=== PATIENT | male | born 1955 | race Caucasian/White ===

== ENCOUNTER 2016-07-15 11:57 | Emergency (ER) | payer OTHER ==
[~2016-07-15] VITALS: Ht 180.3 cm; Wt 113.6 kg
[2016-07-15 12:00] VITALS: BP 147/70; PULSE 89; RESP 16; TEMP 98.8; O2SAT 99
--- NOTE | 2016-07-15 12:08 | PD ---
HPI Chief Complaint: Musculoskeletal Complaint Time Seen by Provider: 12:06 Travel History International Travel<30 days: No Contact w/Intl Traveler<30days: No Traveled to known affect area: No History of Present Illness HPI Patient is a 61-year-old male who presents emergency via EMS for evaluation of left leg pain and left forearm pain. Patient was at work when he slipped on oil , basically doing a split pulling his inner thigh, and forearm. She reports the pain is an 8 out of 10 and describes as cramping and sore. He denies any head injury, loss of consciousness, back pain, hip pain, abdominal pain, shortness of breath. Is a significant past medical history. [facility] Past Medical History Medical History: Denies Significant Hx Social History Alcohol Use: No Tobacco Use: No Substance Use: No Allergies-Medications (Allergen,Severity, Reaction): Coded Allergies: No Known Allergies (Unverified , 07/15/16) Reported Meds & Prescriptions Reported Meds & Active Scripts Active Flexeril (Cyclobenzaprine HCl) 10 Mg Tab 10 Mg PO TID PRN Prednisone 50 Mg Tab 50 Mg PO DAILY Ibuprofen 800 Mg Tab 800 Mg PO Q6HR PRN Review of Systems Except as stated in HPI: all other systems reviewed are Neg Musculoskeletal: Positive: Myalgias, Cramping, Pain Physical Exam Narrative GENERAL: Well-nourished, well-developed patient. SKIN: Warm and dry. HEAD: Normocephalic. EYES: No scleral icterus. No injection or drainage. NECK: Supple, trachea midline. No JVD or lymphadenopathy. CARDIOVASCULAR: Regular rate and rhythm without murmurs, gallops, or rubs. RESPIRATORY: Breath sounds equal bilaterally. No accessory muscle use. GASTROINTESTINAL: Abdomen soft, non-tender, nondistended. MUSCULOSKELETAL: No cyanosis, or edema. Moderately tender to palpation on left inner upper thigh, full range of motion in all 4 extremities. 5/5 muscle strength in all 4 extremities. Patient is neurovascularly intact. There is mild tenderness to palpation on the volar aspect of the left forearm. No erythema or edema noted. BACK: Nontender without obvious deformity. No CVA tenderness. Data Data Last Documented VS Vital Signs Date Time Temp Pulse Resp B/P Pulse Ox O2 Delivery O2 Flow Rate FiO2 07/15/16 12:00 98.8 89 16 147/70 99 Orders Ketorolac Inj (Toradol Inj) (07/15/16 12:15) Orphenadrine Inj (Norflex Inj) (07/15/16 12:15) Dexamethasone Inj (Decadron Inj) (07/15/16 12:15) [facility] Medical Decision Making Medical Screen Exam Complete: Yes Emergency Medical Condition: Yes Interpretation(s) Vital Signs Date Time Temp Pulse Resp B/P Pulse Ox O2 Delivery O2 Flow Rate FiO2 07/15/16 12:00 98.8 89 16 147/70 99 Differential Diagnosis Strain versus sprain versus spasm versus contusion versus fracture versus other Narrative Course Patient is a 61-year-old male who presented to emergency for evaluation of left groin/leg pain and left forearm pain after he sustained a fall at work today. Patient is neurologically intact, there was no head injury or loss of consciousness. Physical examination appears consistent with a muscle strain. Patient be given Norflex, Toradol, dexamethasone emergency department. Will reevaluate. Patient reports improvement in his pain after medication administration. He was encouraged to continue range of motion exercises, HEAT and ice to affected area, and avoid bed rest. He was encouraged to follow-up with his primary doctor. He was also encouraged return to emergency department for any new or worsening symptoms or concerning symptoms. Patient verbalized understanding of these instructions. Patient stable for discharge. Diagnosis Primary Impression: Strain of ligament or muscle Additional Impression: Fall Qualified Code: W19.XXXA - Fall, initial encounter Referrals: Primary Care Physician Patient Instructions: General Instructions, Muscle Spasm (ED), Muscle Strain ( ED) Departure Forms: Tests/Procedures, Work Release Enter return to work date: Jul 18, 2016 Additional Instructions: Follow-up with your primary doctor Take medications as directed Alternate heat and ice to affected area, continue range of motion exercises, avoid bed rest Return to emergency department for any new or worsening symptoms Med/Other Pt SpecificInfo: Prescription(s) given Scripts Cyclobenzaprine (Flexeril)10 Mg Tab10 Mg PO TID PRN (MUSCLE SPASM) #90 TAB Ref 0 Prov:Raine Philip 07/15/16 Prednisone 50 Mg Tab50 Mg PO DAILY #5 TAB Ref 0 Prov:Raine Philip 07/15/16 Ibuprofen 800 Mg [id number] Mg PO Q6HR PRN (PAIN) #40 TAB Ref 0 Prov:Raine Philip 07/15/16 Disposition: 01 DISCHARGE HOME Condition: Stable Raine Philip Jul 15, 2016 12:08
[2016-07-15] MEDS ORDERED: ORPHENADRINE INJ 60 MG/2 ML AMP IM ONE (12:15)
[2016-07-15] MEDS ORDERED: DEXAMETHASONE SOD PHOS 20 MG/5 ML VIAL IM ONE (12:15)
[2016-07-15] MEDS ORDERED: KETOROLAC TROMETHAMINE 60 MG/2 ML (IM) VIAL IM ONE (12:15)
[2016-07-15] MEDS ORDERED: CYCL1TAB29 PO (13:16)
[2016-07-15] MEDS ORDERED: PRED50 PO (13:16)
[2016-07-15] MEDS ORDERED: IBUP800T23 PO (13:16)
[2016-07-15 13:30] VITALS: RESP 16
[2016-07-15] MEDS ORDERED: PERC5TAB12 PO (13:51)
== END 2016-07-15 14:28 | disposition home or self-care (01) ==
LOC: PHEFT 11:57
DX: S76.912A Strain of unspecified muscles, fascia and tendons at thigh level, left thigh, initial encounter (principal); M79.632 Pain in left forearm; R25.2 Cramp and spasm; W01.0XXA Fall on same level from slipping, tripping and stumbling without subsequent striking against object, initial encounter; Y99.0 Civilian activity done for income or pay
CPT/HCPCS: 96372; 99284; E0113; J1100; J1885; J2360